=== PATIENT | male | born 1975 | race Caucasian/White ===

== ENCOUNTER 2018-02-06 17:37 | Emergency (ER) | payer OTHER ==
[2018-02-06] MEDS ORDERED: TETANUS & DIPHTHERIA TOX,ADULT 0.5 ML VIAL ONE (18:01)
[2018-02-06] MEDS ORDERED: LIDOCAINE 1% W/EPI 1:100,000 MDV 50 ML VIAL ONE (18:01)
[2018-02-06] MEDS ORDERED: Acetylcysteine 6000mg/30mL IV ONE (18:17)
--- NOTE | 2018-02-06 19:17 | EDPHYS ---
Physician Documentation [facility] Name: Emre Fernandez Age: 42 yrs Sex: Male : 1975 Arrival Date: 02/06/2018 Time: 17:41 Bed 24 Private MD: Martinez Wade ED Physician Klaus Alexandra HPI: 02/06 19:04 This 42 yrs old Male presents to ER via Ambulatory with complaints of ps1 Laceration To Hand. 19:04 Patient was cutting with a knife that fell off counter. Attempted to catch knife and ps1 cut himself in webspace between thumb and index finger. Pain rated as moderate. No remitting factors other than stabilization. NV intact. Historical: - Allergies: 17:48 No Known Allergies; la1 - PMHx: 17:48 None; la1 - Immunization history:: Adult Immunizations up to date. - Social history:: Smoking status: Patient/guardian denies using tobacco. - Ebola Screening: : No symptoms or risks identified at this time. ROS: 19:04 Constitutional: Negative for fever, chills, and weight loss, Eyes: Negative for injury, ps1 pain, redness, and discharge, Cardiovascular: Negative for chest pain, palpitations, and edema, Respiratory: Negative for shortness of breath, cough, wheezing, and pleuritic chest pain, Abdomen/GI: Negative for abdominal pain, nausea, vomiting, diarrhea, and constipation, Back: Negative for injury and pain, Skin: Negative for injury, rash, and discoloration, Neuro: Negative for headache, weakness, numbness, tingling, and seizure. 19:04 MS/extremity: Positive for laceration. Exam: 19:04 Constitutional: This is a well developed, well nourished patient who is awake, alert, ps1 and in no acute distress. Head/Face: Normocephalic, atraumatic. Eyes: Pupils equal round and reactive to light, extra-ocular motions intact. Lids and lashes normal. Conjunctiva and sclera are non-icteric and not injected. Cardiovascular: Regular rate and rhythm. No gallops, murmurs, or rubs. Normal PMI, no JVD. No pulse deficits. Respiratory: Lungs have equal breath sounds bilaterally, clear to auscultation and percussion. No rales, rhonchi or wheezes noted. No increased work of breathing, no retractions or nasal flaring. Abdomen/GI: Soft, non-tender, with normal bowel sounds. No distension or tympany. No guarding or rebound. No evidence of tenderness throughout. 19:04 Skin: 19:04 Skin: Appearance: normal except for affected area, laceration inbetween webspace of left hand thumb and index finger appx 2 cm. .5cm in depth. NV intact. FROM. . Vital Signs: 17:48 BP 123 / 79; Pulse 86; Resp 16; Temp 98.7; Pulse Ox 98% on R/A; Weight 67.13 kg; Height la1 5 ft. 6 in. (167.64 cm); Pain 4/10; 18:22 BP 126 / 85; Pulse 77; Resp 18; Pulse Ox 100% ; tl3 19:30 BP 125 / 77; Pulse 74; Resp 16 S; Pulse Ox 100% on R/A; rv 17:48 Body Mass Index 23.89 (67.13 kg, 167.64 cm) la1 Laceration: 19:04 Wound Repair of 3cm ( 1.2in ) subcutaneous laceration to left hand. Distal ps1 neuro/vascular/tendon intact. Anesthesia: Local anesthetic administered with 5 mls of 1% lidocaine w/ Epi. Wound prep: Moderate cleansing. Skin closed with 2 5-0 Prolene using simple sutures and sterile technique. Dressed with Bacitracin, 4x4's, splint for protection. . Patient tolerated patient was inadvertantly injected by acetycistene. Similar bottle provided by RN. Patient became painful in wrist and ultimately recovered without incident. . MDM: 19:17 Patient medically screened. ps1 02/06 18:50 Order name: Prolene, Sutures la1 02/06 18:50 Order name: Dressing - Wound la1 02/06 18:50 Order name: Gloves, Sterile la1 02/06 18:50 Order name: Setup Suture Tray la1 Administered Medications: 18:15 Drug: Lidocaine-Epinephrine -1%: (1:100,000) 10 ml Volume: 20 ml; Route: Infiltration; la1 18:51 Follow up: Response: No adverse reaction; local anesthesia acheived to right hand la1 18:48 Drug: Tetanus-Diphtheria Toxoid Adult 0.5 ml {Frame Bender: [employer] ([employer]). Exp: tl3 03/05/2020. Lot #: [id number]. } Route: IM; Site: right deltoid; 19:48 Follow up: Response: No adverse reaction rv Disposition: 02/06/18 19:17 Discharged to Home. Impression: Left hand laceration. - Condition is Stable. - Discharge Instructions: Laceration Care, Adult. - Prescriptions for Tylenol- Codeine #3 300-30 mg Oral Tablet - take 2 tablet by ORAL route every 6 hours As needed; 30 tablet. Zofran 4 mg Oral Tablet - take 1 tablet by ORAL route every 12 hours As needed; 20 tablet. - Medication Reconciliation Form, Thank You Letter, Antibiotic Education, Prescription Opioid Use form. - Follow up: Martinez Wade MD; When: As needed; Reason: Recheck today's complaints, Continuance of care, Re-evaluation by your physician. Follow up: Emergency Department; When: As needed; Reason: Worsening of condition. - Problem is new. - Symptoms have improved. Signatures: Edi Dinero, RN RN la1 Klaus Alexandra MD MD ps1 Neela Barry, ALPA RN tl3 Randy Blackwell, RN RN rv Corrections: (The following items were deleted from the chart) 19:50 19:17 02/06/2018 19:17 Discharged to Home. Impression: Left hand laceration. Condition rv is Stable. Forms are Medication Reconciliation Form, Thank You Letter, Antibiotic Education, Prescription Opioid Use. Follow up: Martinez Wade; When: As needed; Reason: Recheck today's complaints, Continuance of care, Re-evaluation by your physician. Follow up: Emergency Department; When: As needed; Reason: Worsening of condition. Problem is new. Symptoms have improved. ps1
--- NOTE | 2018-02-06 19:17 | ER ---
Nurse's Notes [facility] Name: Emre Fernandez Age: 42 yrs Sex: Male : 1975 Arrival Date: 02/06/2018 Time: 17:41 Bed 24 Private MD: Martinez Wade Diagnosis: Left hand laceration Presentation: 02/06 17:47 Presenting complaint: Patient states: I caught a knife that was falling off the counter la1 and it cut between my thumb and index finger on my left hand. Transition of care: patient was not received from another setting of care. Complicating Factors: There are no complicating factors for this patient. Onset of symptoms was February 06, 2018. Risk Assessment: Do you want to hurt yourself or someone else? Patient reports no desire to harm self or others. Initial Sepsis Screen: Does the patient meet any 2 criteria? No. Patient's initial sepsis screen is negative. Does the patient have a suspected source of infection? No. Patient's initial sepsis screen is negative. Care prior to arrival: None. 17:47 Method Of Arrival: Ambulatory la1 17:47 Acuity: NIKKI 4 la1 Historical: - Allergies: 17:48 No Known Allergies; la1 - PMHx: 17:48 None; la1 - Immunization history:: Adult Immunizations up to date. - Social history:: Smoking status: Patient/guardian denies using tobacco. - Ebola Screening: : No symptoms or risks identified at this time. Screenin:22 Abuse screen: Denies threats or abuse. Nutritional screening: No deficits noted. tl3 Tuberculosis screening: No symptoms or risk factors identified. Fall Risk None identified. Assessment: 18:00 General: Appears in no apparent distress. slender, well groomed, well developed, well tl3 nourished, Behavior is calm, cooperative, appropriate for age. Pain: Complains of pain in left hand. Neuro: Level of Consciousness is awake, alert, obeys commands, Oriented to person, place, time, situation, Appropriate for age. Cardiovascular: Patient's skin is warm and dry. Respiratory: Airway is patent Respiratory effort is even, unlabored, Respiratory pattern is regular, symmetrical. GI: No signs and/or symptoms were reported involving the gastrointestinal system. : No signs and/or symptoms were reported regarding the genitourinary system. EENT: No signs and/or symptoms were reported regarding the EENT system. Derm: Wound noted left hand. Musculoskeletal:. Injury Description: Laceration sustained to left hand is clean. 18:15 Reassessment: The patient received approximately 4ml of acetylcysteine in to the right la1 joint space, pt began complaining of pain and injection was stopped, Dr. Alexandra aware of the administration of the acetylcysteine. Patient placed on monitor, vitals signs within normal limits. [place] poison control called as well as in house pharmacy who both of which state that there should not be any adverse effects and to control the patients pain as needed and that after the pain is controlled the patient can be numbed/blocked and the patient can be sutured and discharged. Patient and family notified of situation. Pt CMS and ROM of left hand intact. 18:22 Reassessment: pt placed on monitor, VSS. tl3 18:48 Reassessment: Patient states pain in left wrist much better at this time. la1 Vital Signs: 17:48 BP 123 / 79; Pulse 86; Resp 16; Temp 98.7; Pulse Ox 98% on R/A; Weight 67.13 kg; Height la1 5 ft. 6 in. (167.64 cm); Pain 4/10; 18:22 BP 126 / 85; Pulse 77; Resp 18; Pulse Ox 100% ; tl3 19:30 BP 125 / 77; Pulse 74; Resp 16 S; Pulse Ox 100% on R/A; rv 17:48 Body Mass Index 23.89 (67.13 kg, 167.64 cm) la1 ED Course: 17:41 Patient arrived in ED. mr 17:41 Martinez Wade MD is Private Physician. mr 17:47 Triage completed. la1 17:48 Arm band placed on left wrist. Patient placed. la1 17:49 Klaus Alexandra MD is Attending Physician. ps1 18:18 Neela Barry, ALPA is Primary Nurse. tl3 18:22 Patient has correct armband on for positive identification. Call light in reach. Side tl3 rails up X 1. 18:22 No provider procedures requiring assistance completed. Patient did not have IV access tl3 during this emergency room visit. 19:13 Martinez Wade MD is Referral Physician. ps1 Administered Medications: 18:15 Drug: Lidocaine-Epinephrine -1%: (1:100,000) 10 ml Volume: 20 ml; Route: Infiltration; la1 18:51 Follow up: Response: No adverse reaction; local anesthesia acheived to right hand la1 18:48 Drug: Tetanus-Diphtheria Toxoid Adult 0.5 ml {Dispatcher Tugboat: [employer] ([employer]). Exp: tl3 03/05/2020. Lot #: [id number]. } Route: IM; Site: right deltoid; 19:48 Follow up: Response: No adverse reaction rv Outcome: 19:17 Discharge ordered by . ps1 19:49 Discharged to home ambulatory. rv 19:49 Condition: good 19:49 Discharge instructions given to patient, Instructed on discharge instructions, follow up and referral plans. medication usage. 19:49 Instructed on wound care, splint care Demonstrated understanding of instructions, rv follow-up care, medications, wound care, splint care, Prescriptions given X 2. 19:50 Patient left the ED. rv Signatures: Roro Olivera Lee, RN RN la1 Klaus Alexandra MD MD ps1 Neela Barry RN RN tl3 Randy Blackwell, ALPA RN rv
== END 2018-02-06 19:50 | disposition home or self-care (01) ==
LOC: ER 17:37
PROC: 0JQK0ZZ Repair Left Hand Subcutaneous Tissue and Fascia, Open Approach (ICD-10-PCS; principal; 2018-02-06)
DX: S61.412A Laceration without foreign body of left hand, initial encounter (principal); W26.0XXA Contact with knife, initial encounter; Z23 Encounter for immunization
CPT/HCPCS: 90714; 99283; J0132